=== PATIENT | male | born 1940 | race Caucasian/White ===

== ENCOUNTER → 2017-02-06 | Outpatient (CLI) | payer OTHER, MEDICARE | END | disposition home or self-care (01) | LOC: LAB.O 16:55 | PROVIDERS: ATTEND Nurse Practitioner Family | DX: R39.14 Feeling of incomplete bladder emptying (principal) ==

== ENCOUNTER → 2017-02-07 | Outpatient (CLI) | payer OTHER, MEDICARE ==
--- NOTE | 2017-02-09 13:18 | US ---
EXAM DESCRIPTION: Bladder CLINICAL HISTORY: 76 years Male R39.14 feeling of incomplete bladder emptying COMPARISON: None. TECHNIQUE: Transabdominal grayscale imaging performed to evaluate the urinary bladder. FINDINGS: The bladder is incompletely distended. Prevoid volume of the bladder 122 mL. Minimal postvoid residual of 7 mm. Prostate is mildly prominent measuring 3.9 x 3.9 cm. IMPRESSION: No significant post void residual noted Electronically signed by: Eva Lasw 02/09/2017 1:16 PM CDT
== END | disposition home or self-care (01) ==
LOC: US 15:17
PROVIDERS: ATTEND Nurse Practitioner Family
DX: R39.14 Feeling of incomplete bladder emptying (principal)

== ENCOUNTER 2017-02-24 05:38 | Day surgery (SDC) | payer OTHER, BC ==
[2017-02-24] MEDS ORDERED: TROP 1%/CYCLOPEN 1%/PHENYL 2% DROPS ONE (09:16)
[2017-02-24] MEDS: PROPARACAINE 0.5% OPHTH SOL 15 ML BTTL ONE ×3 (09:19→09:55)
[2017-02-24] MEDS: TOBRAMYCIN SULF 0.3 % OPHT SOL 1 DROP RIGHT_EYE ONE ×2 (09:20→10:21)
[2017-02-24] MEDS ORDERED: TROP 1%/CYCLOPEN 1%/PHENYL 2% DROPS OPHTH ONE (09:22)
[2017-02-24] MEDS ORDERED: MIDAZOLAM INJ 5 MG/5 ML VIAL IV ONE (09:51)
[2017-02-24] MEDS ORDERED: LIDOCAINE 1% PF 2 ML AMP INJ ONE (10:00)
[2017-02-24] MEDS ORDERED: BRIMONIDINE 0.2% OPHTH DROPS RIGHT_EYE ONE (10:21)
[2017-02-24] MEDS ORDERED: DEXAMETHASONE 0.1% OPHTH SOL 1 DROP RIGHT_EYE ONE (10:21)
[2017-02-24 15:10] VITALS: BP 126/65; TEMP 98; O2SAT 95
== END 2017-02-24 11:25 | disposition home or self-care (01) ==
LOC: AMB 05:38
PROVIDERS: ATTEND Ophthalmology
DX: H25.11 Age-related nuclear cataract, right eye (principal)
CPT/HCPCS: 66984; J2250

== ENCOUNTER 2017-04-07 07:15 | Day surgery (SDC) | payer OTHER, BC ==
[2017-04-07] MEDS: PROPARACAINE 0.5% OPHTH SOL 15 ML BTTL ONE ×3 (06:41→07:55)
[~2017-04-07 07:15] MED LIST: LIDOCAINE 1% MPF 5 ML VIAL ONE; MIDAZOLAM INJ 2 MG/2 ML VIAL ONE; TOBRAMYCIN-DEXAMETH OPHTH SOL 1 DROP LEFT_EYE ONE; TROP 1%/CYCLOPEN 1%/PHENYL 2% DROPS ONE
[2017-04-07] MEDS ORDERED: SODIUM CHLORIDE 0.9% 10 ML VIAL ONE (07:54)
[2017-04-07] MEDS ORDERED: DEXAMETHASONE 0.1% OPHTH SOL 1 DROP LEFT_EYE ONE (08:15)
[2017-04-07] MEDS ORDERED: TOBRAMYCIN SULF 0.3 % OPHT SOL 1 DROP LEFT_EYE ONE (08:15)
[2017-04-07] MEDS ORDERED: BRIMONIDINE 0.2% OPHTH DROPS LEFT_EYE ONE (08:15)
[2017-04-07 09:00] VITALS: BP 129/70; TEMP 97.7; O2SAT 97
== END 2017-04-07 08:55 | disposition home or self-care (01) ==
LOC: AMB 07:15
PROVIDERS: ATTEND Ophthalmology
DX: H25.12 Age-related nuclear cataract, left eye (principal); I10 Essential (primary) hypertension; J44.9 Chronic obstructive pulmonary disease, unspecified; Z79.899 Other long term (current) drug therapy
CPT/HCPCS: 66984; J2250

== ENCOUNTER → 2017-07-11 | Outpatient (CLI) | payer OTHER, MEDICARE ==
--- NOTE | 2017-07-13 12:12 | RAD ---
EXAM DESCRIPTION: Chest,2 Views CLINICAL HISTORY: 77 years Male, COPD J44.1 COMPARISON: None. FINDINGS: The lungs appear slightly hyperinflated. There is minor linear stranding in the left costophrenic angle and the right midlung field, likely chronic. No pulmonary consolidation or pleural effusion is identified. Heart size appears within normal limits. There is slight uncoiling of the thoracic aorta. Hilar shadows appears slightly prominent, probably due to central pulmonary arterial structures. Minor chronic bony changes are noted in the dorsal spine. IMPRESSION: Findings consistent with COPD. No definite radiographic evidence of acute cardiopulmonary disease. Electronically signed by: Yonis Michaud 07/13/2017 12:11 PM [employer]
== END | disposition home or self-care (01) ==
LOC: LAB.O 13:51
PROVIDERS: ATTEND Nurse Practitioner Family
DX: J44.1 Chronic obstructive pulmonary disease with (acute) exacerbation (principal)

== ENCOUNTER → 2017-08-05 | Outpatient (CLI) | payer OTHER, MEDICARE ==
--- NOTE | 2017-08-05 20:16 | CT ---
EXAM DESCRIPTION: Chest w/Contrast : Computed Tomography. CLINICAL HISTORY: COPD COMPARISON: Chest radiographs 07/11/2017. TECHNIQUE: Spiral-axial scans at 5.0 mm intervals through the lungs and thorax with IV contrast. 2.5 mm lung algorithm axial reconstructions. Coronal and sagittal 2.0 Mm reconstructions. No adverse reactions. Total Exam DLP: 797.67 mGy-cm. This exam was performed according to our departmental dose-optimization program which includes automated exposure control, adjustment of the mA and/or kV according to patient size and/or use of iterative reconstruction technique; to reduce radiation dose to as low as reasonably achievable (ALARA). FINDINGS: Mosaic parenchymal density in the lungs bilaterally. Bilateral blebs centrally in the parenchyma also abutting the medial pleura. Peripheral reticular densities upper and lower lobes. Minimal groundglass density in the left lower lobe. No large nodules, no mass. No pleural effusion or pneumothorax. Lateral perihilar peribronchial wall thickening. Uniform enhancement of the included thyroid gland. No soft tissue masses base of the neck. No enlarged mediastinal lymph nodes. Azygous node short axis diameter is 9 mm. No enlarged hilar lymph nodes. No axillary adenopathy. Coronary artery calcifications. Atherosclerotic calcifications in the aorta. Spondylosis at some levels of the thoracic spine. Significant foraminal narrowing at some levels. Fusion construct anteriorly inferior cervical spine segments. No bone destruction. IMPRESSION: 1. Emphysematous changes in the lungs consistent with COPD. More prevalent in the upper lung adkins. Peripheral interstitial disease more prevalent in the lower lung adkins. Possible early pneumonia versus atelectasis left lower lobe. No abnormal nodules. 2. No mediastinal or hilar adenopathy. 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
== END ==
LOC: CT 10:00
PROVIDERS: ATTEND Internal Medicine
DX: J44.9 Chronic obstructive pulmonary disease, unspecified (principal)

== ENCOUNTER 2018-10-03 21:01 | Emergency (ER) | payer OTHER, MEDICARE ==
--- NOTE | 2018-10-03 23:03 | RAD ---
EXAM DESCRIPTION: Chest,1 View CLINICAL HISTORY:78 years Male, dyspnea Comparison: October 02, 2018 FINDINGS: No focal lung consolidation. No pleural effusion. No pneumothorax. Cardiac and mediastinal silhouette is unremarkable. No acute osseous abnormality. Soft tissues are unremarkable. IMPRESSION: No acute findings. No focal lung consolidation. Electronically signed by: Heraclio Jacques MD 10/03/2018 11:00 PM CDT
[2018-10-04 00:39] VITALS: O2SAT 97
--- NOTE | 2018-10-04 01:05 | ED.PDOC ---
History of Present Illness - General Chief Complaint: Respiratory Problem Stated Complaint: shortness of breath Time Seen by Provider: 10/03/18 22:01 Source: patient, Vital Signs reviewed, family Exam Limitations: no limitations - History of Present Illness Initial Comments: c/o insomnia & anxiety. His says for the last 24 hrs he has been restless & agitated. His dyspnea has improved as compared to yesterday. Timing/Duration: 24 hours Severity: moderate Improving Factors: nothing Worsening Factors: nothing Associated Symptoms: cough, shortness of breath Allergies/Adverse Reactions: Allergies NO KNOWN ALLERGY Allergy (Verified 10/02/18 07:22) Home Medications: Ambulatory Orders Albuterol Sulfate [Proair Hfa] 2 puff INH Q6H PRN 04/07/17 B-Complex W/ Folic Acid [Super B Complex Maxi] 1 tab PO DAILY 04/07/17 Bupropion HCl [Wellbutrin Xl] 300 mg PO DAILY 04/07/17 Cholecalciferol [Vitamin D3] 10,000 unit PO DAILY 04/07/17 Desvenlafaxine Succinate [Pristiq] 100 mg PO DAILY 04/07/17 Fluticasone Furoate-Vilanterol [Breo Ellipta] 1 inh IN DAILY 04/07/17 Furosemide [Lasix] 20 mg PO DAILY 04/07/17 Magnesium 400 mg PO DAILY 04/07/17 Phytonadione [Vitamin K] 100 mcg PO DAILY 04/07/17 Potassium Iodide (Antidote) [Thyrosafe] 12.5 mg PO DAILY 04/07/17 RX: Lisinopril 5 mg PO DAILY 04/07/17 Rivaroxaban [Xarelto] 20 mg PO BEDTIME 04/07/17 Rosuvastatin Calcium [Crestor] 10 mg PO BEDTIME 04/07/17 Umeclidinium Jefferson [Incruse Ellipta] 62.5 mcg IN DAILY 04/07/17 predniSONE [Prednisone] 60 mg PO DAILY 3 Days #9 tab 10/02/18 LORazepam [Ativan] 1 mg PO Q12H PRN 2 Days #4 tab 10/04/18 Review of Systems - Review of Systems Constitutional: States: no symptoms reported EENTM: States: no symptoms reported Respiratory: States: see HPI Cardiology: States: no symptoms reported Gastrointestinal/Abdominal: States: no symptoms reported Genitourinary: States: no symptoms reported Musculoskeletal: States: no symptoms reported Skin: States: no symptoms reported Neurological: States: see HPI Hematologic/Lymphatic: States: no symptoms reported Past Medical History (General) - Patient Medical History Hx Seizures: No Hx Stroke: No Hx Dementia: No Hx of COPD: Yes Hx Cardiac Disorders: No Hx Congestive Heart Failure: Yes Hx Pacemaker: No Hx Hypertension: Yes Hx Thyroid Disease: No Hx Diabetes: No Hx Gastroesophageal Reflux: No Hx Renal Disease: No Hx Cancer: No Hx of HIV: No Hx Hepatitis C: No Hx MRSA: No Surgical History: other - Vaccination History Hx Tetanus, Diphtheria Vaccination: Yes Hx Influenza Vaccination: Yes Hx Pneumococcal Vaccination: Yes - Social History Hx Tobacco Use: Yes Hx Alcohol Use: Yes - OCC Hx Substance Use: No Hx Substance Use Treatment: No Hx Depression: No Family Medical History - Family History Mother Family History: Unknown Living Status: Physical Exam - Physical Exam General Appearance: Alert, Comfortable, No apparent distress Ears, Nose, Throat: hearing grossly normal Neck: supple, normal inspection Respiratory: normal breath sounds, no respiratory distress Cardiovascular/Chest: regular rate, rhythm, no JVD, no murmur Gastrointestinal/Abdominal: non tender, soft Extremity: non-tender, normal inspection Neurologic: alert, normal mood/affect, oriented x 3 Skin Exam: normal color, warm/dry Progress - Progress Progress: 10/04/18 01:02 Sleeping. Says his dyspnea has resolved. 10/04/18 06:20 78 yo male with a h/o COPD presents with insomnia, restlessness and anxiety since starting steroids & increasing the frequency of his bronchodilator. I saw him yesterday & started him on Prednisone. He was also 12 hrs before coming here tonight at another ED & they gave him SoluMedrol. He says his dyspnea is much improved but the anxiety related symptoms predominate now. No hallucinations. His EKG, CXR & troponin here reveal nothing acute. I suspect symptoms related to high dose steroids & frequent albuterol use. I will discontinue his steroids after tomorrow & he is to take his albuterol q 4 hrs PRN. - Results/Orders Results/Orders: troponin <0.02 d-dimer nml - EKG/XRAY/CT EKG: Sinus, no ST T wave changes Comments: rate = 80; nml axis, intervals, QRS, ST segments & T waves XRAY: chest - no acute process Departure - Departure Clinical Impression: Anxiety COPD (chronic obstructive pulmonary disease) Qualifiers: COPD type: unspecified COPD Qualified Code(s): J44.9 - Chronic obstructive pulmonary disease, unspecified Time of Disposition: :03 Disposition: Discharge to Home or Self Care Condition: Good Departure Forms: ED Discharge - Pt. Copy, Patient Portal Self Enrollment Instructions: Anxiety, Adult (DC), Exacerbation of COPD (DC) Activity: increase activity as tolerated Referrals: [facility] [Primary Care Provider] - 10/05/18 Prescriptions: LORazepam [Ativan] 1 mg PO Q12H PRN 2 Days #4 tab PRN Reason: Anxiety Home Medications: Ambulatory Orders Albuterol Sulfate [Proair Hfa] 2 puff INH Q6H PRN 04/07/17 B-Complex W/ Folic Acid [Super B Complex Maxi] 1 tab PO DAILY 04/07/17 Bupropion HCl [Wellbutrin Xl] 300 mg PO DAILY 04/07/17 Cholecalciferol [Vitamin D3] 10,000 unit PO DAILY 04/07/17 Desvenlafaxine Succinate [Pristiq] 100 mg PO DAILY 04/07/17 Fluticasone Furoate-Vilanterol [Breo Ellipta] 1 inh IN DAILY 04/07/17 Furosemide [Lasix] 20 mg PO DAILY 04/07/17 Magnesium 400 mg PO DAILY 04/07/17 Phytonadione [Vitamin K] 100 mcg PO DAILY 04/07/17 Potassium Iodide (Antidote) [Thyrosafe] 12.5 mg PO DAILY 04/07/17 RX: Lisinopril 5 mg PO DAILY 04/07/17 Rivaroxaban [Xarelto] 20 mg PO BEDTIME 04/07/17 Rosuvastatin Calcium [Crestor] 10 mg PO BEDTIME 04/07/17 Umeclidinium Jefferson [Incruse Ellipta] 62.5 mcg IN DAILY 04/07/17 predniSONE [Prednisone] 60 mg PO DAILY 3 Days #9 tab 10/02/18 LORazepam [Ativan] 1 mg PO Q12H PRN 2 Days #4 tab 10/04/18
[2018-10-04 01:15] VITALS: BP 154/81; TEMP 98.6
== END 2018-10-04 01:10 | disposition home or self-care (01) ==
LOC: ER 21:01
DX: F41.9 Anxiety disorder, unspecified (principal); J44.9 Chronic obstructive pulmonary disease, unspecified; I50.9 Heart failure, unspecified; I11.0 Hypertensive heart disease with heart failure; Z87.891 Personal history of nicotine dependence; Z79.899 Other long term (current) drug therapy
CPT/HCPCS: 71045; 80053; 83880; 84484; 85025; 85379; 93005; J2060

== ENCOUNTER → 2018-10-06 | Outpatient (CLI) | payer OTHER, MEDICARE ==
--- NOTE | 2018-10-07 12:38 | CT ---
EXAM DESCRIPTION: Chest w/wo Contrast : Computed Tomography. CLINICAL HISTORY: 78 years Male OTHER FORMS OF DYSPNEA COMPARISON: CT scan of the chest with IV contrast 08/05/2017. TECHNIQUE: Spiral-axial scans at 5 x 5 mm mm intervals through the lungs and thorax without IV contrast. 2.5 x 5 mm lung algorithm axial reconstructions. Coronal and sagittal 2.0 Mm reconstructions after IV contrast. No adverse reactions. Total Exam DLP: 1568.85 mGy-cm. This exam was performed according to our departmental dose-optimization program which includes automated exposure control, adjustment of the mA and/or kV according to patient size and/or use of iterative reconstruction technique; to reduce radiation dose to as low as reasonably achievable (ALARA). Nodule measurements under 10 mm are given as mean value of 3 axes diameters. FINDINGS: Lungs and large airways: Scattered bilateral blebs in the centrilobular distribution more prevalent in the upper lung adkins. Minimal pleural-parenchymal scarring in the inferior lingula. Minimal posterior dependent atelectasis in the bilateral lower lobes. Partially solid nodule in the right middle lobe anterior to the hilum on axial series 302, image 73. Solid component diameter is 4 mm. Not present on the prior study. No other nodules, no masses, no focal infiltrates. Pleural spaces: Scattered bilateral focal pleural thickening with no effusion or pneumothorax. Mediastinum and Savita: No enlarged nodes are soft tissue masses. Great vessels and Heart: Atherosclerotic calcifications in the proximal brachiocephalic vessels, thoracic aorta, and coronary arteries. Soft tissues of neck base, axillae, and chest wall: No enlarged lymph nodes or soft tissue masses. Inhomogeneous thyroid gland enhancement. Upper abdomen: Partial visualization of left renal cyst also seen on the prior study. Partial visualization of abdominal organs. No fatty stranding fascial thickening, free air or fluid in the included peritoneal cavity. Osseous structures: Bilateral glenohumeral arthrosis. Bilateral sternoclavicular joint arthrosis and first costo chondral arthrosis as well as manubriosternal arthrosis. Minimal thoracic spondylosis. No blastic or lytic lesions. IMPRESSION: 1. 4 mm partially solid nodule anterior to the right hilum, not seen on chest CT scan in July 2017. Emphysematous changes in the lungs bilaterally. No other nodules. No masses or focal infiltrates. No pleural effusion or pneumothorax. Recommend follow-up chest CT scan without and with IV contrast in 6 month interval. Electronically signed by: Dani Garland MD 10/07/2018 12:35 PM CDT
== END ==
LOC: CT 13:57
PROVIDERS: ATTEND Internal Medicine
DX: J43.9 Emphysema, unspecified (principal); R91.1 Solitary pulmonary nodule

== ENCOUNTER → 2019-05-05 | Outpatient (CLI) | payer OTHER, MEDICARE ==
--- NOTE | 2019-05-06 12:29 | RAD ---
EXAM DESCRIPTION: Hip,Left 2 Views CLINICAL HISTORY: 79 years Male, PAIN COMPARISON: November 17, 2018. TECHNIQUE: 2 views of the left hip. FINDINGS: Diffuse osteopenia of the visualized bones noted. Postsurgical changes consistent with prior fixation of the left intertrochanteric fracture with the intramedullary lauri and transverse cervical screw traversing through the femoral neck. The hardware appears grossly intact. No acute fracture or dislocation. Mild left hip joint osteoarthritic changes noted. Overlying soft tissues appear grossly unremarkable. IMPRESSION: 1. Stable left intertrochanteric fracture fixation with intramedullary lauri and screw through the femoral neck. The hardware appears intact. No acute fracture or dislocation. 2. Mild left hip joint osteoarthritis. Electronically signed by: Miguelito Avina MD 05/06/2019 12:28 PM [facility]
--- NOTE | 2019-05-06 12:32 | RAD ---
EXAM DESCRIPTION: Pelvis CLINICAL HISTORY: 79 years Male, PAIN COMPARISON: 02/17/2019. TECHNIQUE: AP radiograph of the pelvis was performed. FINDINGS: The pelvic ring appears grossly intact on this single AP radiograph. No acute fracture or dislocation. Left femur intertrochanteric fracture fixation with intramedullary lauri and partially threaded screw through the femoral neck with intact hardware. No evidence of loosening or failure noted. Bilateral sacroiliac joints appear normal. Bilateral hip joints appear normal. The visualized lumbo-sacral spine demonstrates spinal fixation hardware with moderate degenerative changes. Mild bilateral hip joint osteoarthritic changes are also noted. IMPRESSION: 1.Single AP radiograph of the pelvis demonstrates grossly intact pelvic ring. 2. Intact left femur orthopedic hardware. Electronically signed by: Miguelito Avina MD 05/06/2019 12:31 PM [facility]
== END ==
LOC: RAD 16:35
PROVIDERS: ATTEND Nurse Practitioner Family
DX: S72.145D Nondisplaced intertrochanteric fracture of left femur, subsequent encounter for closed fracture with routine healing (principal); M16.12 Unilateral primary osteoarthritis, left hip; Z98.890 Other specified postprocedural states

== ENCOUNTER → 2020-04-17 | Outpatient (CLI) | payer OTHER, MEDICARE ==
--- NOTE | 2020-04-17 15:43 | RAD ---
EXAM DESCRIPTION: Hand,Left 3 Views CLINICAL HISTORY: 80 years Male, PAIN IN LEFT HAND COMPARISON: None. TECHNIQUE: 3 view radiograph of the left hand. IMPRESSION: No acute displaced fracture. No dislocation. Mild to moderate arthrosis about the interphalangeal joints and carpal bones. No erosion. Minimal positive ulnar variance of 1 to 2 mm. Unremarkable soft tissues. Electronically signed by: Geoffrey Montano MD 04/17/2020 3:41 PM CDT
--- NOTE | 2020-04-17 15:50 | RAD ---
EXAM DESCRIPTION: Hand,Right 3 Views CLINICAL HISTORY: 80 years Male, PAIN IN RIGHT HAND COMPARISON: None. Findings: 3 view(s)/radiograph(s) No acute fracture or dislocation. No focal soft tissue swelling. Remote healed deformity of the right fifth metacarpal neck. Mild/moderate scattered osteoarthritis in the right hand. IMPRESSION: No acute osseous abnormality in the right hand. Electronically signed by: Jono Vasquez MD 04/17/2020 3:49 PM CDT
== END ==
LOC: RAD 07:57
PROVIDERS: ATTEND Orthopaedic Surgery
DX: M19.042 Primary osteoarthritis, left hand (principal); M24.832 Other specific joint derangements of left wrist, not elsewhere classified; M79.641 Pain in right hand